=== PATIENT | female | born 1980 | race Caucasian/White ===

== ENCOUNTER 2018-11-08 17:36 | Emergency (ER) | payer SELFPAY ==
[2018-11-08] MEDS: LORAZEPAM 0.5 MG TAB PO (20:07)
[2018-11-08] MEDS: KETOROLAC 30 MG INJ IM (20:07)
== END 2018-11-08 21:28 | disposition home or self-care (01) ==
LOC: FTE 17:36
DX: R51 Headache (principal); F41.9 Anxiety disorder, unspecified
CPT/HCPCS: 81025; 96372; 99284-25